=== PATIENT | male | born 1980 | race American Indian/Alaskan Native ===

== ENCOUNTER 2022-01-14 11:07 | Inpatient (IN) | payer SELFPAY ==
[2022-01-14 12:38] LABS: Hematocrit 49.2 % (35.5-45.6); Hemoglobin 16.8 gm/dl (11.8-15.2); Mean Corpuscular HGB Conc 34 % (32-34); Mean Corpuscular Volume 98 fl (84-94); Platelet Count 333 K/mm3 (140-440)
[2022-01-14 13:01] LABS: Calcium 11.1 mg/dL (8.4-10.2)
[2022-01-14] MEDS ORDERED: SODIUM CHLORIDE 0.9% 1000 ML 1,000 ML IV ONE ×2 (13:08→15:50)
[2022-01-14 13:27] LABS: Albumin 6.9 g/dL (3.9-5)
--- NOTE | 2022-01-14 13:27 | Event Note ---
ED Screening Note ED Screening Note: KEIRA AWARE OF WBC LABS NOTED US ORDERED This initial assessment/diagnostic orders/clinical plan/treatment(s) is/are subject to change based on patients health status, clinical progression and re- assessment by fellow clinical providers in the ED. Further treatment and workup at subsequent clinical providers discretion. Patient/guardian urged not to elope from the ED as their condition may be serious if not clinically assessed and managed. Initial orders include: NEEDS BED FOR EVAL
--- NOTE | 2022-01-14 14:08 | Ultrasound Report ---
LIMITED RUQ ABDOMINAL ULTRASOUND INDICATION: RUQ PAIN. COMPARISON: No relevant prior imaging study available. FINDINGS: Pancreas: Visualized portions show no significant abnormality. Abdominal Aorta: No significant abnormality. IVC: No significant abnormality. Liver: The liver measures 14 cm in length. No significant abnormality. Normal hepatopedal blood flow in the main portal vein. Gallbladder: No significant abnormality. Bile ducts: No significant abnormality. Common bile duct measures 2 mm. Right kidney: No significant abnormality visualized.. Free fluid: None. Additional Findings: None. IMPRESSION: 1. Normal exam. Signer Name: Camron Haque MD Signed: 01/14/2022 2:03 PM Workstation Name: [email or web address]
[2022-01-14] MEDS ORDERED: ONDANSETRON 4 MG/2 ML INJ IV ONE ×2 (14:19→16:03)
[2022-01-14] MEDS ORDERED: MORPHINE 4 MG/1 ML INJ IV ONE (14:19)
--- NOTE | 2022-01-14 15:19 | Emergency Department Report ---
ED Abdominal Pain HPI - General Chief Complaint: Abdominal Pain Stated Complaint: NAUSEA/VOMITING PUI?: No Time Seen by Provider: 01/14/22 14:55 Source: patient, EMS Mode of arrival: Stretcher Limitations: No Limitations - History of Present Illness Initial Comments: ILL APPEARING MALE COMES TO ER WITH N/V TO FT FOR EVAL- ABEL ORDERED LAB/HYDRATION ETC. LABS NOTED WBC [address] ACOSTA REFUSED TO SEE DR LOMELI - THE AM MD- SCREENED PT A 2ND TIME AT 1420 PT WAITING FOR AFTERNOON MD TO EVALUATE HIM-- COMPLETED AT 1600 - Related Data Allergies Allergy/AdvReac Type Severity Reaction Status Date / Time No Known Allergies Allergy Verified 01/14/22 11:15 ED Review of Systems ROS: Stated complaint: NAUSEA/VOMITING Other details as noted in HPI Comment: All other systems reviewed and negative ED Past Medical Hx - Past Medical History Previous Medical History?: Yes Additional medical history: gerd - Surgical History Past Surgical History?: Yes - Social History Smoking Status: Current Every Day Smoker Substance Use Type: Alcohol, Marijuana ED Physical Exam - General Limitations: No Limitations General appearance: alert - Head Head exam: Present: atraumatic, normocephalic - Eye Eye exam: Present: normal appearance - ENT ENT exam: Present: mucous membranes dry - Neck Neck exam: Present: normal inspection - Respiratory Respiratory exam: Present: normal lung sounds bilaterally. Absent: respiratory distress - Cardiovascular Cardiovascular Exam: Present: regular rate, normal rhythm. Absent: systolic murmur, diastolic murmur, rubs, gallop - GI/Abdominal GI/Abdominal exam: Present: soft, normal bowel sounds - Rectal Rectal exam: Present: deferred - Extremities Exam Extremities exam: Present: normal inspection - Back Exam Back exam: Present: normal inspection - Neurological Exam Neurological exam: Present: alert, oriented X3 - Psychiatric Psychiatric exam: Present: normal affect, normal mood - Skin Skin exam: Present: warm, dry, intact, normal color. Absent: rash ED Course Vital Signs 01/14/22 11:14 Pulse Rate 88 Respiratory 16 Rate Blood Pressure 152/90 [Left] O2 Sat by Pulse 98 Oximetry ED Medical Decision Making - Lab Data Result diagrams: 01/14/22 12:29 01/14/22 12:29 - Medical Decision Making Labs 01/14/22 01/14/22 12:29 12:29 WBC 22.9 H RBC 5.00 Hgb 16.8 H Hct 49.2 H MCV 98 H MCH 34 H MCHC 34 RDW 14.0 Plt Count 333 Sodium 146 H Potassium 4.2 Chloride 93.2 L Carbon Dioxide 24 Anion Gap 33 BUN 71 H Creatinine 8.9 H Estimated GFR 7 BUN/Creatinine Ratio 8 Glucose 129 H Calcium 11.1 H Total Bilirubin 0.90 AST 27 ALT 19 Alkaline Phosphatase 136 H Total Protein 9.4 H Albumin 6.9 H Albumin/Globulin Ratio 2.8 Lipase 87 H Vital Signs 01/14/22 11:14 Pulse Rate 88 Respiratory 16 Rate Blood Pressure 152/90 [Left] O2 Sat by Pulse 98 Oximetry Critical care attestation.: If time is entered above; I have spent that time in minutes in the direct care of this critically ill patient, excluding procedure time. ED Disposition Clinical Impression: Abdominal pain Disposition: 30 STILL A PATIENT Is pt being admited?: Yes Does the pt Need Aspirin: No Condition: Stable Referrals: PRIMARY CARE, [Primary Care Provider] - 3-5 Days
--- NOTE | 2022-01-14 15:37 | Cat Scan Report ---
CT ABDOMEN AND PELVIS WITHOUT CONTRAST INDICATION / CLINICAL INFORMATION: Acute abdominal pain with nausea and vomiting, parveen. TECHNIQUE: Axial CT images were obtained through the abdomen and pelvis without IV contrast. All CT scans at this location are performed using CT dose reduction for ALARA by means of automated exposure control. COMPARISON: None available. FINDINGS: LOWER CHEST: No significant abnormality. AORTA / ARTERIES: No significant abnormality. IVC / VEINS: No significant abnormality. LYMPH NODES: No significant adenopathy. COLON: No significant abnormality. APPENDIX: No significant abnormality. STOMACH / SMALL BOWEL: No significant abnormality. PERITONEUM: No free fluid. No free air. No fluid collection. LIVER: Scattered subcentimeter hypoattenuating foci throughout the liver. 2 small to completely matt cterize but statistically likely represent simple hepatic cysts. GALLBLADDER: No significant abnormality. BILE DUCTS: No significant abnormality. PANCREAS: No significant abnormality. SPLEEN: No significant abnormality. ADRENALS: No significant abnormality. RIGHT KIDNEY / URETER: Subcentimeter hypoattenuating focus which is too small to completely character ize but statistically likely represents a simple renal cyst. No acute findings. LEFT KIDNEY / URETER: No significant abnormality. URINARY BLADDER: No significant abnormality. REPRODUCTIVE ORGANS: No significant abnormality. SKELETAL SYSTEM: There is a bony excrescence off of the left L3 vertebral process, possibly sequela o f prior trauma versus sequela of degenerative facet disease. ADDITIONAL FINDINGS: None. IMPRESSION: 1. No CT findings to explain symptomatology. 2. Additional findings as above. Signer Name: Liam Holland DO Signed: 01/14/2022 3:32 PM Workstation Name: [email or web address]
[2022-01-14] MEDS ORDERED: FAMOTIDINE 20 MG/2 ML INJ IV ONE (16:03)
--- NOTE | 2022-01-14 16:23 | Emergency Department Report ---
HPI - General Chief Complaint: Abdominal Pain PUI?: No Time Seen by Provider: 01/14/22 14:55 - HPI HPI: 41-year-old male with a history of chronic marijuana abuse, who states he has no known past medical history, presents with what he states has been several days of persistent nausea vomiting diarrhea abdominal pain and inability to tolerate liquids or solids. He states that he last smoked marijuana 1 day ago. He denies any alcohol or other illicit drug usage. He states "I go through the cycles where I feel sick for about 2 weeks but this time I just felt worse." He reports persistent cramping of his abdomen associated with persistent watery nonbloody vomiting and watery nonbloody diarrhea. He states he is making urine but very little. No melena hematochezia or hematemesis. 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 Pain currently 6 out of 10. Of note that medical screening examination was performed by Dr.Michael Sellers, prior to the onset of this provider shift time. He had ordered the patient for labs and diagnostic imaging, all of which resulted at the onset of this provider shift time. ED Past Medical Hx - Past Medical History Previous Medical History?: Yes Additional medical history: gerd - Surgical History Past Surgical History?: Yes - Social History Smoking Status: Current Every Day Smoker Substance Use Type: Alcohol, Marijuana ED Review of Systems ROS: Stated complaint: NAUSEA/VOMITING Other details as noted in HPI Comment: All other systems reviewed and negative Constitutional: see HPI, malaise, weakness Eyes: denies: eye pain, eye discharge, vision change ENT: denies: ear pain, throat pain, dental pain, hearing loss, epistaxis Respiratory: denies: see HPI, cough, orthopnea, shortness of breath, SOB with exertion, SOB at rest Cardiovascular: denies: chest pain, palpitations, dyspnea on exertion, orthopnea, edema, syncope, paroxysmal nocturnal dyspnea, other Endocrine: no symptoms reported Gastrointestinal: abdominal pain, nausea, vomiting, diarrhea. denies: constipation, hematemesis, melena, hematochezia, other Genitourinary: denies: urgency, dysuria, frequency, hematuria, discharge, testic ular pain, testicular mass Musculoskeletal: denies: back pain, joint swelling, arthralgia Skin: denies: rash, lesions, change in color, change in hair/nails, pruritus Neurological: weakness. denies: headache, numbness, paresthesias, confusion, abnormal gait Psychiatric: denies: anxiety, depression, auditory hallucinations, visual hallucinations, homicidal thoughts Hematological/Lymphatic: denies: easy bleeding, easy bruising, swollen glands Physical Exam - Physical Exam Vital Signs: Vital Signs 01/14/22 11:14 Pulse Rate 88 Respiratory 16 Rate Blood Pressure 152/90 [Left] O2 Sat by Pulse 98 Oximetry General: Gen: pt is well appearing, no acute distress HEENT: Normocephalic atraumatic pupils equally round and reactive to light extraocular muscles intact sclera anicteric Neck: Full range of motion, no midline spinal tenderness palpation, no JVD, no carotid bruits, no nuchal rigidity, pale and dry oral mucosa CVS: S1-S2 regular rate and rhythm with no gallops rubs or murmurs, chest wall nontender Pulmonary: Clear to auscultation bilaterally, no wheezes rales or rhonchi Abdomen: Soft nondistended nontender no guarding or rebound tenderness, no palpable deformities or step-offs, normal active bowel sounds, no hepatosplenomegaly, no pulsatile masses : Deferred Extremities: No cyanosis no clubbing no edema, intact distal peripheral pulses, Integumentary: Skin normal, no petechia no purpura no abscess no lacerations no evidence of trauma no evidence of infection Neuro: Patient is awake alert and oriented to person place time situation, mentating well, cranial nerves II through XII intact, no focal neurodeficits, sensation grossly tact Psych: Calm cooperative, mood affect normal ED Course Vital Signs 01/14/22 11:14 Pulse Rate 88 Respiratory 16 Rate Blood Pressure 152/90 [Left] O2 Sat by Pulse 98 Oximetry - Consultations Consultation #1: 01/14/22 19:23 I was asked by Dr. Brooks to telephone nephrology concerning their following of the patient. I called Dr. Mackey and spoke to him directly. Case details were reviewed with him at length. Per his verbal report, patient is to receive continued IV hydration and undergo repeat serum creatinines. Patient does not warrant emergent hemodialysis at this time. He welcomes a return call to nephrology should the patient decompensate or develop worsening renal function or acidosis. ED Medical Decision Making - Lab Data Result diagrams: 01/14/22 12:29 01/14/22 12:29 - Radiology Data Radiology results: report reviewed - Medical Decision Making 41-year-old male with a history of chronic cannabis usage presents for evaluation of nausea vomiting diarrhea and abdominal pain. Vital signs stable. Serum lab work reveals a leukocytosis of 22.9, elevated anion gap metabolic acidosis of 33, what is presumed to be acute kidney injury with a creatinine of 8.9. Patient has hyperuricemia. Pt ordered for multiple liters of normal saline while in the ER. His mentation remained normal and stable. Case reviewed with admitting hospitalist, Dr. Brooks. THe pt has been accepted for admission to the hospitalist service for further management. Critical Care Time: No Critical care attestation.: If time is entered above; I have spent that time in minutes in the direct care of this critically ill patient, excluding procedure time. ED Disposition Clinical Impression: Abdominal pain, High anion gap metabolic acidosis, Acute kidney injury, Leukocytosis Disposition: 09 ADMITTED INPATIENT Is pt being admited?: Yes Does the pt Need Aspirin: No Condition: Stable Referrals: PRIMARY CARE, [Primary Care Provider] - 3-5 Days
--- NOTE | 2022-01-14 17:58 | History and Physical Report ---
History of Present Illness Chief complaint: I have been feeling sick for the past 2 weeks History of present illness: 41 YO Male with GERD, Nicotine Dependence, ETOH Dependence presents ED for evaluation. Patient reports "I have been feeling sick for the past 2 weeks". Patient states that he has experienced multiple episodes of nausea, multiple episodes of vomiting, abdominal discomfort over the past 2 weeks with persistent symptoms over the same timeframe. EMS was notified and upon arrival the patient was found to be in distress and subsequent transported to [facility] for further care and evaluation of the aforementioned symptoms. The patient was seen and evaluated in the emergency department. All lab and imaging studies reviewed. Patient was found to have sepsis suspected secondary to urinary tract infection CLEMENCIA with ATN. Patient admitted to medical floor due to increased risk of worsening symptoms after medical stabilization. Patient initiated on sepsis protocol. Nephrology team consulted in ED. Patient has fever, chills, chest pain, palpitation, adductive cough, skin rash, recent contact, known exposure to COVID-19. No prior admission for review. No medication listed at time of admission for reconciliation. Advanced care planning conducted in ED. Past History Past Medical History: GERD Past Surgical History: No surgical history, Other (Reviewed) Social history: single, smoking, alcohol abuse Family history: hypertension Medications and Allergies Allergies Allergy/AdvReac Type Severity Reaction Status Date / Time No Known Allergies Allergy Verified 01/14/22 11:15 Review of Systems Constitutional: no weight loss, no weight gain, no fever Ears, nose, mouth and throat: no ear pain, no ear discharge, no tinnitis, no decreased hearing, no nose pain Cardiovascular: no chest pain, no orthopnea, no edema, no syncope Respiratory: no cough, no excessive sputum, no shortness of breath Gastrointestinal: nausea, vomiting Genitourinary Male: no hematuria, no flank pain, no discharge, no urinary frequency, no urinary hesitancy Rectal: no pain, no incontinence, no bleeding Musculoskeletal: no neck stiffness, no shooting arm pain, no arm numbness/tingling, no low back pain, no shooting leg pain Integumentary: no rash, no pruritis, no sores, no wounds, no jaundice Neurological: no transient paralysis, no weakness, no numbness, no tingling, no seizures Psychiatric: no anxiety, no change in sleep habits, no insomnia, no change in appetite, no disorientation Endocrine: no cold intolerance, no excessive thirst, no polyuria, no excessive sweating, no weight change Hematologic/Lymphatic: no easy bleeding Allergic/Immunologic: no urticaria, no wheezing Exam - Constitutional Vitals: Temp Pulse Resp BP Pulse Ox 88 16 152/90 98 01/14/22 11:14 01/14/22 11:14 01/14/22 11:14 01/14/22 11:14 General appearance: Present: mild distress - EENT Eyes: Present: PERRL ENT: hearing intact, clear oral mucosa - Neck Neck: Present: supple, normal ROM - Respiratory Respiratory effort: normal Respiratory: bilateral: CTA - Cardiovascular Heart Sounds: Present: S1 & S2. Absent: rub, click - Extremities Extremities: pulses symmetrical, No edema Peripheral Pulses: within normal limits - Abdominal General gastrointestinal: Present: soft, non-tender, non-distended, normal bowel sounds Male genitourinary: Present: normal - Integumentary Integumentary: Present: clear, warm, dry - Musculoskeletal Musculoskeletal: gait normal, strength equal bilaterally - Psychiatric Psychiatric: appropriate mood/affect, intact judgment & insight - Neurologic Neurologic: CNII-XII intact, moves all extremities Results - Labs CBC & Chem 7: 01/14/22 12:29 01/14/22 12:29 Labs: Abnormal lab results 01/14/22 01/14/22 01/14/22 Range/Units 12:29 12:29 14:39 WBC 22.9 H (4.5-11.0) K/mm3 Hgb 16.8 H (11.8-15.2) gm/dl Hct 49.2 H (35.5-45.6) % MCV 98 H (84-94) fl MCH 34 H (28-32) pg Sodium 146 H (137-145) mmol/L Chloride 93.2 L (98-107) mmol/L BUN 71 H (9-20) mg/dL Creatinine 8.9 H (0.8-1.3) mg/dL Glucose 129 H (75-100) mg/dL Calcium 11.1 H (8.4-10.2) mg/dL Magnesium 2.70 H (1.7-2.3) mg/dL Alkaline Phosphatase 136 H (35-129) units/L Total Creatine Kinase 1203 H (55-170) units/L Total Protein 9.4 H (6.3-8.2) g/dL Albumin 6.9 H (3.9-5) g/dL Lipase 87 H (13-60) units/L Assessment and Plan - Patient Problems (1) Sepsis Current Visit: Yes Status: Acute Plan to address problem: Sepsis protocol: IV antibiotic therapy, IV fluid resuscitation therapy, urinalysis, (2) UTI (urinary tract infection) Current Visit: Yes Status: Acute Qualifiers: Encounter type: initial encounter Plan to address problem: Urinalysis, IV antibiotic therapy, supportive care. (3) Acute kidney injury (CLEMENCIA) with acute tubular necrosis (ATN) Current Visit: Yes Status: Acute Plan to address problem: IV for resuscitation therapy, nephrology team consulted in ED, strict I's/O, monitor urine output every shift, renal ultrasound, urine electrolytes (4) Nicotine dependence Current Visit: Yes Status: Acute Qualifiers: Nicotine product type: cigarettes Plan to address problem: Smoking cessation counseling, supportive care, baby change counseling, +15 minutes. (5) Advance care planning Current Visit: Yes Status: Acute Plan to address problem: Disease education done, care plan discussed, diagnoses discussed, prognosis discussed, patient is full code. Patient knowledges understanding agree with care plan, +30 minutes. (6) Preventative health care Current Visit: Yes Status: Acute Plan to address problem: Patient counseled regarding risk factor reduction, outpatient medication compliance, outpatient follow-up with primary care physician for all age and risk factor appropriate screening test. +30 minutes. (7) DVT prophylaxis Current Visit: Yes Status: Acute Plan to address problem: SCD to bilateral lower extremities while in bed
[2022-01-14 19:10] LABS: Hepatitis B Surface Antigen Non-Reactive (Negative); Hepatitis C Virus Antibody Non-Reactive (NonReactive)
[2022-01-14] MEDS ORDERED: ACETAMINOPHEN 325 MG TAB PO PRN ×2 (19:13→19:15)
[2022-01-14] MEDS ORDERED: SODIUM CHLORIDE 0.9% 1000 ML IV SOLN IV ONE (19:13)
[2022-01-14] MEDS ORDERED: HYDROmorphone 0.5 MG/0.5 ML INJ IV PRN (19:13)
[2022-01-14] MEDS ORDERED: ALBUTEROL 2.5 MG/3 ML NEBU IH PRN (19:15)
[2022-01-14] MEDS ORDERED: oxyCODONE /ACETAMINOPHEN 5-325MG TAB PO PRN (19:15)
[2022-01-14 20:09] LABS: Amphetamine Screen,Urine PRESUMPTIVE NEGATIVE; Benzodiazepines Screen,Urine PRESUMPTIVE NEGATIVE; Cannabinoid Screen,Urine PRESUMPTIVE POSITIVE; Cocaine Screen,Urine PRESUMPTIVE NEGATIVE; Methadone Screen,Urine PRESUMPTIVE NEGATIVE; Opiate Screen,Urine PRESUMPTIVE NEGATIVE
[2022-01-14 20:11] LABS: Mucus,Urine FEW /HPF
[2022-01-14 20:16] LABS: Color,Urine Yellow (Yellow)
[2022-01-14 20:29] LABS: Creatinine,Urine 394.4 mg/dL (0.1-20.0)
[2022-01-14] MEDS ORDERED: LORazepam 2 MG/ML VIAL IV PRN (20:43)
[2022-01-15] MEDS: SODIUM CHLORIDE 0.9% 1000 ML 1,000 ML IV SCH ×2 (05:28→18:39)
[2022-01-15 06:30] LABS: Basophils # (Auto) 0.1 K/mm3 (0.0-0.1); Basophils % (Auto) 0.4 % (0.0-1.8); Eosinophils # (Auto) 0.1 K/mm3 (0.0-0.4); Eosinophils % (Auto) 0.5 % (0.0-4.3); Hematocrit 42.2 % (35.5-45.6); Hemoglobin 13.8 gm/dl (11.8-15.2); Lymphocytes # (Auto) 1.2 K/mm3 (1.2-5.4); Lymphocytes % (Auto) 6.4 % (13.4-35.0); Mean Corpuscular HGB Conc 33 % (32-34); Mean Corpuscular Volume 100 fl (84-94); Monocytes # (Auto) 1.5 K/mm3 (0.0-0.8); Monocytes % (Auto) 8.1 % (0.0-7.3); Platelet Count 250 K/mm3 (140-440); Red Blood Count 4.22 M/mm3 (3.65-5.03); Red Cell Distribution Width 14.4 % (13.2-15.2)
[2022-01-15 06:47] LABS: Calcium 9.4 mg/dL (8.4-10.2)
--- NOTE | 2022-01-15 09:28 | Ultrasound Report ---
ULTRASOUND RENAL INDICATION / CLINICAL INFORMATION: esrd. COMPARISON: CT and ultrasound dated 01/14/22 FINDINGS: RIGHT KIDNEY: Length = 10.1 cm. - Echogenicity: Moderately echogenic. - Parenchymal Thickness: Normal. - Hydronephrosis: None. - Cyst / Mass: None. - Stones: None seen. LEFT KIDNEY: Length = 10.1 cm. - Echogenicity: Moderately echogenic. - Parenchymal Thickness: Normal. - Hydronephrosis: None. - Cyst / Mass: None. - Stones: None seen. URINARY BLADDER: No significant abnormality. FREE FLUID: None. ADDITIONAL FINDINGS: None. IMPRESSION: 1. Bilateral echogenic kidneys characteristic of medical renal disease. No hydronephrosis or other [place] abnormality. Signer Name: Shimon Garnett MD Signed: 01/15/2022 9:23 AM Workstation Name: [email or web address]
--- NOTE | 2022-01-15 11:22 | Consultation ---
History of Present Illness - Reason for Consult Consult date: 01/15/22 acute renal failure - History of Present Illness The patient is a 41 YO Male with history of GERD, Nicotine dependence and ETOH dependence who presented to [facility] 01/14/22 with c/o N & V for the past 2 weeks. Patient states that he has experienced multiple episodes of nausea, vomiting and associated abdominal discomfort. Patient deneis fever, chills, chest pain, palpitation, cough, rash, dysuria, hematuria, recent contact, known exposure to COVID-19. Labs notable for Creat 8.9 and BUN 71. Admitted for further treat ment. Nephrology consulted or further evaluation and treatment of CLEMENCIA. Past History Past Medical History: GERD, other (See HPI.) Past Surgical History: No surgical history, Other (Reviewed) Social history: single, smoking, alcohol abuse Family history: hypertension Medications and Allergies Allergies Allergy/AdvReac Type Severity Reaction Status Date / Time No Known Allergies Allergy Verified 01/14/22 11:15 Active Meds: Active Medications Acetaminophen (Acetaminophen 325 Mg Tab) 650 mg PO Q4H PRN PRN Reason: Pain MILD(1-3)/Fever >100.5/KINCAID Albuterol (Albuterol 2.5 Mg/3 Ml Nebu) 2.5 mg IH Q4HRT PRN PRN Reason: Shortness Of Breath Hydromorphone HCl (Hydromorphone 0.5 Mg/0.5 Ml Inj) 0.25 mg IV Q4H PRN PRN Reason: Pain , Severe (7-10) Levofloxacin/Dextrose (Levaquin 750mg/150ml) 750 mg in 150 mls @ 100 mls/hr IV Q48H KVNG; Protocol Last Admin: 01/15/22 09:36 Dose: 100 mls/hr Sodium Chloride (Nacl 0.9% 1000 Ml) 1,000 mls @ 125 mls/hr IV DIRECT KVNG Last Admin: 01/15/22 05:28 Dose: 125 mls/hr Lorazepam (Lorazepam 2 Mg/Ml Vial) 2 mg IV Q1HR PRN PRN Reason: CIWA-Ar 8-15 Ondansetron HCl (Ondansetron 4 Mg/2 Ml Inj) 4 mg IV Q8H PRN PRN Reason: Nausea And Vomiting Oxycodone/Acetaminophen (Oxycodone /Acetaminophen 5-325mg Tab) 1 tab PO Q16H PRN PRN Reason: Pain, Moderate (4-6) Sodium Chloride (Sodium Chloride 0.9% 10 Ml Flush Syringe) 10 ml IV BID KVNG Last Admin: 01/15/22 09:37 Dose: 10 ml Sodium Chloride (Sodium Chloride 0.9% 10 Ml Flush Syringe) 10 ml IV PRN PRN PRN Reason: LINE FLUSH Review of Systems All systems: negative Exam - Vital Signs Vital signs: Vital Signs Pulse Resp BP Pulse Ox 88 16 152/90 98 01/14/22 11:14 01/14/22 11:14 01/14/22 11:14 01/14/22 11:14 Results - Lab Results 01/15/22 06:09 01/15/22 06:09 Most recent lab results Calcium 9.4 mg/dL (8.4-10.2) D 01/15/22 06:09 Magnesium 2.70 mg/dL (1.7-2.3) H 01/14/22 14:39 Urine Creatinine 394.4 mg/dL (0.1-20.0) H 01/14/22 Unknown Urine Sodium 22 mmol/L 01/14/22 Unknown Assessment and Plan 1. Acute kidney injury: Vasomotor CLEMENCIA in the setting of volume depletion. Renal US and CT negative for hydro. Urine studies ordered. ATN. Monitor renal function. Creatinine level is improving. Avoid nephrotoxic agents. Meds dosage based on GFR. 2. FEN: Replete lytes as needed. Monitor lytes and volume status. 3. Leukocytosis, POA: Abx. Monitor. 4. Etoh use: Monitor. 5. Tobacco use. Subjective: Patient was seen and examined at the bedside. Examination: General appearance: well-developed, appears stated age, no distress HEENT: atraumatic, no icterus Neck: trachea midline Respiratory: ctab Heart: S1S2, regular, no murmur Abdomen: soft, bowel sounds heard, NT Integumentary: no obvious rash Neurologic: AO, conversing, moving extremities Ext: no edema
--- NOTE | 2022-01-15 11:35 | Progress Note ---
Assessment and Plan Assessment and plan: 41 YO Male with GERD, Nicotine Dependence, ETOH Dependence presents ED for evaluation of multiple episodes of nausea, multiple episodes of vomiting, abdominal discomfort over the past 2 weeks. EMS was notified and upon arrival the patient was found to have sepsis suspected secondary to urinary tract in fection CLEMENCIA with ATN. Sepsis UTI Acute kidney injury with ATN Nicotine dependence 01/15/2022. Patient's leukocytosis persists however creatinine has improved. Creatinine on admission was 8.9 and has improved to 3.[address] scan of the abdomen pelvis and renal ultrasound reveals no obstruction or hydronephrosis. However, renal ultrasound does reveal medical renal disease. We do not have a baseline creatinine to compare. Continue IV fluid hydration and follow-up BMP History Interval history: No new issues overnight Hospitalist Physical - Constitutional Vitals: Temp Pulse Resp BP Pulse Ox 98.8 F 53 L 20 155/104 99 01/15/22 03:16 01/15/22 03:16 01/15/22 03:16 01/15/22 03:16 01/15/22 10:00 General appearance: Present: no acute distress - EENT Eyes: Present: PERRL, EOM intact ENT: hearing intact, clear oral mucosa, dentition normal - Neck Neck: Present: supple, normal ROM - Respiratory Respiratory effort: normal Respiratory: bilateral: CTA - Cardiovascular Rhythm: regular Heart Sounds: Present: S1 & S2. Absent: gallop, rub - Extremities Extremities: no ischemia, No edema, Full ROM - Abdominal General gastrointestinal: soft, non-tender, non-distended, normal bowel sounds - Integumentary Integumentary: Present: clear, warm, dry - Neurologic Neurologic: CNII-XII intact, moves all extremities Results - Labs CBC & Chem 7: 01/15/22 06:09 01/15/22 06:09 Labs: Laboratory Last Values WBC 19.0 K/mm3 (4.5-11.0) H 01/15/22 06:09 RBC 4.22 M/mm3 (3.65-5.03) 01/15/22 06:09 Hgb 13.8 gm/dl (11.8-15.2) D 01/15/22 06:09 Hct 42.2 % (35.5-45.6) D 01/15/22 06:09 MCV 100 fl (84-94) H 01/15/22 06:09 MCH 33 pg (28-32) H 01/15/22 06:09 MCHC 33 % (32-34) 01/15/22 06:09 RDW 14.4 % (13.2-15.2) 01/15/22 06:09 Plt Count 250 K/mm3 (140-440) 01/15/22 06:09 Lymph % (Auto) 6.4 % (13.4-35.0) L 01/15/22 06:09 [place] % (Auto) 8.1 % (0.0-7.3) H 01/15/22 06:09 Eos % (Auto) 0.5 % (0.0-4.3) 01/15/22 06:09 Baso % (Auto) 0.4 % (0.0-1.8) 01/15/22 06:09 Lymph # (Auto) 1.2 K/mm3 (1.2-5.4) 01/15/22 06:09 [place] # (Auto) 1.5 K/mm3 (0.0-0.8) H 01/15/22 06:09 Eos # (Auto) 0.1 K/mm3 (0.0-0.4) 01/15/22 06:09 Baso # (Auto) 0.1 K/mm3 (0.0-0.1) 01/15/22 06:09 Seg Neutrophils % 84.6 % (40.0-70.0) H 01/15/22 06:09 Seg Neutrophils # 16.1 K/mm3 (1.8-7.7) H 01/15/22 06:09 Sodium 145 mmol/L (137-145) 01/15/22 06:09 Potassium 3.9 mmol/L (3.6-5.0) 01/15/22 06:09 Chloride 105.8 mmol/L (98-107) 01/15/22 06:09 Carbon Dioxide 26 mmol/L (22-30) 01/15/22 06:09 Anion Gap 17 mmol/L 01/15/22 06:09 BUN 60 mg/dL (9-20) H 01/15/22 06:09 Creatinine 3.9 mg/dL (0.8-1.3) H D 01/15/22 06:09 Estimated GFR 21 ml/min 01/15/22 06:09 BUN/Creatinine Ratio 15 % 01/15/22 06:09 Glucose 113 mg/dL (75-100) H 01/15/22 06:09 Lactic Acid 1.80 mmol/L (0.7-2.0) 01/15/22 01:05 Calcium 9.4 mg/dL (8.4-10.2) D 01/15/22 06:09 Magnesium 2.70 mg/dL (1.7-2.3) H 01/14/22 14:39 Total Bilirubin 0.90 mg/dL (0.1-1.2) 01/14/22 12:29 AST 27 units/L (5-40) 01/14/22 12:29 ALT 19 units/L (7-56) 01/14/22 12:29 Alkaline Phosphatase 136 units/L (35-129) H 01/14/22 12:29 Total Creatine Kinase 1203 units/L (55-170) H 01/14/22 14:39 Total Protein 9.4 g/dL (6.3-8.2) H 01/14/22 12:29 Albumin 6.9 g/dL (3.9-5) H 01/14/22 12:29 Albumin/Globulin Ratio 2.8 % 01/14/22 12:29 Lipase 87 units/L (13-60) H 01/14/22 12:29 Urine Color Yellow (Yellow) 01/14/22 19:33 Urine Turbidity Clear (Clear) 01/14/22 19:33 Specific [place] (Man) 1.030 (1.003-1.030) 01/14/22 19:33 Ur Protein (Man) 2+ mg/dL (Negative) 01/14/22 19:33 Ur Ketones (Man) Negative (Negative) 01/14/22 19:33 Ur Nitrite (Man) Negative (Negative) 01/14/22 19:33 Ur Reducing Substances Not Reportable 01/14/22 19:33 Urine Bilirubin (Man) Negative (Negative) 01/14/22 19:33 Urine Ictotest Not Reportable 01/14/22 19:33 Leukocyte Esterase (Man) Negative (Negative) 01/14/22 19:33 Urine WBC (Auto) 10.0 /HPF (0.0-6.0) H 01/14/22 19:33 Urine RBC (Auto) 4.0 /HPF (0.0-6.0) 01/14/22 19:33 U Epithel Cells (Auto) 1.0 /HPF (0-13.0) 01/14/22 19:33 Urine RBC (Manual) 1+ (Negative) 01/14/22 19:33 Urine Mucus Few /HPF 01/14/22 19:33 Urine Yeast (Budding) 1+ /HPF 01/14/22 19:33 Urine Creatinine 394.4 mg/dL (0.1-20.0) H 01/14/22 Unknown Urine Sodium 22 mmol/L 01/14/22 Unknown Urine Opiates Screen Presumptive negative 01/14/22 Unknown Urine Methadone Screen Presumptive negative 01/14/22 Unknown Ur Barbiturates Screen Presumptive negative 01/14/22 Unknown Ur Phencyclidine Scrn Presumptive negative 01/14/22 Unknown Ur Amphetamines Screen Presumptive negative 01/14/22 Unknown U Benzodiazepines Scrn Presumptive negative 01/14/22 Unknown Urine Cocaine Screen Presumptive negative 01/14/22 Unknown U Marijuana (THC) Screen Presumptive positive 01/14/22 Unknown Drugs of Abuse Note Disclamer 01/14/22 Unknown Hepatitis A IgM Ab Non-reactive (NonReactive) 01/14/22 18:11 Hep Bs Antigen Non-reactive (Negative) 01/14/22 18:11 Hep B Core IgM Ab Non-reactive (NonReactive) 01/14/22 18:11 Hepatitis C Antibody Non-reactive (NonReactive) 01/14/22 18:11 HIV 1&2 Antibody Rapid Non react (Non React) 01/14/22 18:11 HIV P24 Antigen Non react (Non React) 01/14/22 18:11 Blood Type AB POSITIVE 01/14/22 20:55 Antibody Screen Negative 01/14/22 20:55 Microbiology: Microbiology 01/14/22 20:55 Peripheral/Venous Blood Culture - Preliminary Culture in Progress 01/14/22 21:08 Peripheral/Venous Blood Culture - Preliminary Culture in Progress Maddox/IV: Voiding Method Toilet Active Medications - Current Medications Current Medications: Generic Name Dose Route Start Last Admin Trade Name Freq PRN Reason Stop Dose Admin Acetaminophen 650 mg 01/14/22 19:15 Acetaminophen 325 Mg Tab PO Q4H PRN Pain MILD(1-3)/Fever >100.5/KINCAID Albuterol 2.5 mg 01/14/22 19:15 Albuterol 2.5 Mg/3 Ml Nebu IH Q4HRT PRN Shortness Of Breath Hydromorphone HCl 0.25 mg 01/14/22 19:13 Hydromorphone 0.5 Mg/0.5 Ml Inj IV Q4H PRN Pain , Severe (7-10) Levofloxacin/Dextrose 750 mg in 150 mls @ 100 mls/hr 01/15/22 08:00 01/15/22 09:36 Levaquin 750mg/150ml IV 100 mls/hr Q48H KVNG Administration Protocol Sodium Chloride 1,000 mls @ 125 mls/hr 01/14/22 19:15 01/15/22 05:28 Nacl 0.9% 1000 Ml IV 125 mls/hr DIRECT KVNG Administration Lorazepam 2 mg 01/14/22 20:43 Lorazepam 2 Mg/Ml Vial IV Q1HR PRN CIWA-Ar 8-15 Ondansetron HCl 4 mg 01/14/22 19:15 Ondansetron 4 Mg/2 Ml Inj IV Q8H PRN Nausea And Vomiting Oxycodone/Acetaminophen 1 tab 01/14/22 19:15 Oxycodone /Acetaminophen 5-325mg Tab PO Q16H PRN Pain, Moderate (4-6) Sodium Chloride 10 ml 01/14/22 22:00 01/15/22 09:37 Sodium Chloride 0.9% 10 Ml Flush Syringe IV 10 ml BID KVNG Administration Sodium Chloride 10 ml 01/14/22 19:15 Sodium Chloride 0.9% 10 Ml Flush Syringe IV PRN PRN LINE FLUSH
--- NOTE | 2022-01-15 13:19 | Electrocardiograph Report ---
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
[2022-01-15] MEDS: ONDANSETRON 4 MG/2 ML INJ IV PRN (18:38)
[2022-01-16] MEDS: ONDANSETRON 4 MG/2 ML INJ IV PRN ×3 (03:16→23:43)
[2022-01-16] MEDS: SODIUM CHLORIDE 0.9% 1000 ML 1,000 ML IV SCH (03:17)
[2022-01-16 07:19] LABS: Basophils % (Auto) 0.1 % (0.0-1.8); Eosinophils % (Auto) 0.1 % (0.0-4.3); Hematocrit 38.5 % (35.5-45.6); Hemoglobin 12.7 gm/dl (11.8-15.2); Lymphocytes # (Auto) 1.6 K/mm3 (1.2-5.4); Lymphocytes % (Auto) 16.5 % (13.4-35.0); Mean Corpuscular HGB Conc 33 % (32-34); Mean Corpuscular Volume 102 fl (84-94); Monocytes # (Auto) 0.9 K/mm3 (0.0-0.8); Monocytes % (Auto) 9.4 % (0.0-7.3); Platelet Count 228 K/mm3 (140-440); Red Blood Count 3.79 M/mm3 (3.65-5.03); Red Cell Distribution Width 13.9 % (13.2-15.2)
[2022-01-16 07:33] LABS: Calcium 9.2 mg/dL (8.4-10.2)
--- NOTE | 2022-01-16 10:34 | Progress Note ---
Assessment and Plan 1. Acute kidney injury: Vasomotor CLEMENCIA in the setting of volume depletion. Renal US and CT negative for hydro. ATN. Monitor renal function. Creatinine level is much better. Avoid nephrotoxic agents. Meds dosage based on GFR. 2. FEN: Hypernatremia, IV fluids changed to 1/2 NS. Replete lytes as needed. Monitor lytes and volume status. 3. Leukocytosis, POA: Abx. Monitor. 4. Etoh use: Monitor. 5. Tobacco use. Will sign off. F/u with me in 1-2 weeks. Subjective: Patient was seen and examined at the bedside. Doing better. Examination: General appearance: well-developed, appears stated age, no distress HEENT: atraumatic, no icterus Neck: trachea midline Respiratory: ctab Heart: S1S2, regular, no murmur Abdomen: soft, bowel sounds heard, NT Integumentary: no obvious rash Neurologic: AO, conversing, moving extremities Ext: no edema Subjective Date of service: 01/16/22 Objective - Vital Signs Vital signs: Vital Signs - 12hr 01/15/22 01/16/22 23:00 04:15 Temperature 97.5 F L Pulse Rate 47 L Respiratory 18 18 Rate Blood Pressure 132/75 O2 Sat by Pulse 98 99 Oximetry - Lab 01/16/22 06:57 01/16/22 06:57 Most recent lab results Calcium 9.2 mg/dL (8.4-10.2) 01/16/22 06:57 Magnesium 2.70 mg/dL (1.7-2.3) H 01/14/22 14:39 Urine Creatinine 394.4 mg/dL (0.1-20.0) H 01/14/22 Unknown Urine Sodium 22 mmol/L 01/14/22 Unknown Medications & Allergies - Medications Allergies/Adverse Reactions: Allergies No Known Allergies Allergy (Verified 01/14/22 11:15) Active Medications: Generic Name Dose Route Start Last Admin Trade Name Freq PRN Reason Stop Dose Admin Acetaminophen 650 mg 01/14/22 19:15 Acetaminophen 325 Mg Tab PO Q4H PRN Pain MILD(1-3)/Fever >100.5/KINCAID Albuterol 2.5 mg 01/14/22 19:15 Albuterol 2.5 Mg/3 Ml Nebu IH Q4HRT PRN Shortness Of Breath Hydromorphone HCl 0.25 mg 01/14/22 19:13 Hydromorphone 0.5 Mg/0.5 Ml Inj IV Q4H PRN Pain , Severe (7-10) Levofloxacin/Dextrose 750 mg in 150 mls @ 100 mls/hr 01/15/22 08:00 01/15/22 09:36 Levaquin 750mg/150ml IV 100 mls/hr Q48H KVNG Administration Protocol Sodium Chloride 1,000 mls @ 125 mls/hr 01/14/22 19:15 01/16/22 03:17 Nacl 0.9% 1000 Ml IV 125 mls/hr DIRECT KVNG Administration Lorazepam 2 mg 01/14/22 20:43 Lorazepam 2 Mg/Ml Vial IV Q1HR PRN CIWA-Ar 8-15 Ondansetron HCl 4 mg 01/14/22 19:15 01/16/22 03:16 Ondansetron 4 Mg/2 Ml Inj IV 4 mg Q8H PRN Administration Nausea And Vomiting Oxycodone/Acetaminophen 1 tab 01/14/22 19:15 Oxycodone /Acetaminophen 5-325mg Tab PO Q16H PRN Pain, Moderate (4-6) Sodium Chloride 10 ml 01/14/22 22:00 01/15/22 21:51 Sodium Chloride 0.9% 10 Ml Flush Syringe IV 10 ml BID KVNG Administration Sodium Chloride 10 ml 01/14/22 19:15 Sodium Chloride 0.9% 10 Ml Flush Syringe IV PRN PRN LINE FLUSH
[2022-01-16] MEDS: SODIUM CHLORIDE 0.45% 1000 ML 1,000 ML IV SCH ×2 (10:59→23:06)
--- NOTE | 2022-01-16 11:16 | Progress Note ---
Assessment and Plan Assessment and plan: 41 YO Male with GERD, Nicotine Dependence, ETOH Dependence presents ED for evaluation of multiple episodes of nausea, multiple episodes of vomiting, abdominal discomfort over the past 2 weeks. EMS was notified and upon arrival the patient was found to have sepsis suspected secondary to urinary tract in fection CLEMENCIA with ATN. Sepsis UTI Acute kidney injury with ATN Nicotine dependence 01/15/2022. Patient's leukocytosis persists however creatinine has improved. Creatinine on admission was 8.9 and has improved to 3.[address] scan of the abdomen pelvis and renal ultrasound reveals no obstruction or hydronephrosis. However, renal ultrasound does reveal medical renal disease. We do not have a baseline creatinine to compare. Continue IV fluid hydration and follow-up BMP 01/16/2022. Patient's creatinine has improved. Creatinine 8.9->3.9-->1.6. We will continue IV fluid hydration and anticipate for discharge in a.m. History Interval history: No new issues overnight Hospitalist Physical - Constitutional Vitals: Temp Pulse Resp BP Pulse Ox 97.5 F L 47 L 18 132/75 99 01/16/22 04:15 01/16/22 04:15 01/16/22 04:15 01/16/22 04:15 01/16/22 04:15 General appearance: Present: no acute distress - EENT Eyes: Present: PERRL, EOM intact ENT: hearing intact, clear oral mucosa, dentition normal - Neck Neck: Present: supple, normal ROM - Respiratory Respiratory effort: normal Respiratory: bilateral: CTA - Cardiovascular Rhythm: regular Heart Sounds: Present: S1 & S2. Absent: gallop, rub - Extremities Extremities: no ischemia, No edema, Full ROM - Abdominal General gastrointestinal: soft, non-tender, non-distended, normal bowel sounds - Integumentary Integumentary: Present: clear, warm, dry - Neurologic Neurologic: CNII-XII intact, moves all extremities Results - Labs CBC & Chem 7: 01/16/22 06:57 01/16/22 06:57 Labs: Laboratory Last Values WBC 9.5 K/mm3 (4.5-11.0) 01/16/22 06:57 RBC 3.79 M/mm3 (3.65-5.03) 01/16/22 06:57 Hgb 12.7 gm/dl (11.8-15.2) 01/16/22 06:57 Hct 38.5 % (35.5-45.6) 01/16/22 06:57 MCV 102 fl (84-94) H 01/16/22 06:57 MCH 33 pg (28-32) H 01/16/22 06:57 MCHC 33 % (32-34) 01/16/22 06:57 RDW 13.9 % (13.2-15.2) 01/16/22 06:57 Plt Count 228 K/mm3 (140-440) 01/16/22 06:57 Lymph % (Auto) 16.5 % (13.4-35.0) 01/16/22 06:57 [place] % (Auto) 9.4 % (0.0-7.3) H 01/16/22 06:57 Eos % (Auto) 0.1 % (0.0-4.3) 01/16/22 06:57 Baso % (Auto) 0.1 % (0.0-1.8) 01/16/22 06:57 Lymph # (Auto) 1.6 K/mm3 (1.2-5.4) 01/16/22 06:57 [place] # (Auto) 0.9 K/mm3 (0.0-0.8) H 01/16/22 06:57 Eos # (Auto) 0.0 K/mm3 (0.0-0.4) 01/16/22 06:57 Baso # (Auto) 0.0 K/mm3 (0.0-0.1) 01/16/22 06:57 Seg Neutrophils % 73.9 % (40.0-70.0) H 01/16/22 06:57 Seg Neutrophils # 7.0 K/mm3 (1.8-7.7) 01/16/22 06:57 Sodium 148 mmol/L (137-145) H 01/16/22 06:57 Potassium 4.1 mmol/L (3.6-5.0) 01/16/22 06:57 Chloride 110.4 mmol/L (98-107) H 01/16/22 06:57 Carbon Dioxide 30 mmol/L (22-30) 01/16/22 06:57 Anion Gap 12 mmol/L 01/16/22 06:57 BUN 26 mg/dL (9-20) H 01/16/22 06:57 Creatinine 1.6 mg/dL (0.8-1.3) H D 01/16/22 06:57 Estimated GFR 59 ml/min 01/16/22 06:57 BUN/Creatinine Ratio 16 % 01/16/22 06:57 Glucose 85 mg/dL (75-100) 01/16/22 06:57 Lactic Acid 1.80 mmol/L (0.7-2.0) 01/15/22 01:05 Calcium 9.2 mg/dL (8.4-10.2) 01/16/22 06:57 Magnesium 2.70 mg/dL (1.7-2.3) H 01/14/22 14:39 Total Bilirubin 0.90 mg/dL (0.1-1.2) 01/14/22 12:29 AST 27 units/L (5-40) 01/14/22 12:29 ALT 19 units/L (7-56) 01/14/22 12:29 Alkaline Phosphatase 136 units/L (35-129) H 01/14/22 12:29 Total Creatine Kinase 1203 units/L (55-170) H 01/14/22 14:39 Total Protein 9.4 g/dL (6.3-8.2) H 01/14/22 12:29 Albumin 6.9 g/dL (3.9-5) H 01/14/22 12:29 Albumin/Globulin Ratio 2.8 % 01/14/22 12:29 Lipase 87 units/L (13-60) H 01/14/22 12:29 Urine Color Yellow (Yellow) 01/14/22 19:33 Urine Turbidity Clear (Clear) 01/14/22 19:33 Specific [place] (Man) 1.030 (1.003-1.030) 01/14/22 19:33 Ur Protein (Man) 2+ mg/dL (Negative) 01/14/22 19:33 Ur Ketones (Man) Negative (Negative) 01/14/22 19:33 Ur Nitrite (Man) Negative (Negative) 01/14/22 19:33 Ur Reducing Substances Not Reportable 01/14/22 19:33 Urine Bilirubin (Man) Negative (Negative) 01/14/22 19:33 Urine Ictotest Not Reportable 01/14/22 19:33 Leukocyte Esterase (Man) Negative (Negative) 01/14/22 19:33 Urine WBC (Auto) 10.0 /HPF (0.0-6.0) H 01/14/22 19:33 Urine RBC (Auto) 4.0 /HPF (0.0-6.0) 01/14/22 19:33 U Epithel Cells (Auto) 1.0 /HPF (0-13.0) 01/14/22 19:33 Urine RBC (Manual) 1+ (Negative) 01/14/22 19:33 Urine Mucus Few /HPF 01/14/22 19:33 Urine Yeast (Budding) 1+ /HPF 01/14/22 19:33 Urine Creatinine 394.4 mg/dL (0.1-20.0) H 01/14/22 Unknown Urine Sodium 22 mmol/L 01/14/22 Unknown Urine Opiates Screen Presumptive negative 01/14/22 Unknown Urine Methadone Screen Presumptive negative 01/14/22 Unknown Ur Barbiturates Screen Presumptive negative 01/14/22 Unknown Ur Phencyclidine Scrn Presumptive negative 01/14/22 Unknown Ur Amphetamines Screen Presumptive negative 01/14/22 Unknown U Benzodiazepines Scrn Presumptive negative 01/14/22 Unknown Urine Cocaine Screen Presumptive negative 01/14/22 Unknown U Marijuana (THC) Screen Presumptive positive 01/14/22 Unknown Drugs of Abuse Note Disclamer 01/14/22 Unknown Hepatitis A IgM Ab Non-reactive (NonReactive) 01/14/22 18:11 Hep Bs Antigen Non-reactive (Negative) 01/14/22 18:11 Hep B Core IgM Ab Non-reactive (NonReactive) 01/14/22 18:11 Hepatitis C Antibody Non-reactive (NonReactive) 01/14/22 18:11 HIV 1&2 Antibody Rapid Non react (Non React) 01/14/22 18:11 HIV P24 Antigen Non react (Non React) 01/14/22 18:11 Blood Type AB POSITIVE 01/14/22 20:55 Antibody Screen Negative 01/14/22 20:55 Microbiology: Microbiology 01/14/22 19:33 Urine,Clean Catch Urine Culture - Final 01/14/22 20:55 Peripheral/Venous Blood Culture - Preliminary NO GROWTH AFTER 24 HOURS 01/14/22 21:08 Peripheral/Venous Blood Culture - Preliminary NO GROWTH AFTER 24 HOURS Maddox/IV: Voiding Method Toilet Active Medications - Current Medications Current Medications: Generic Name Dose Route Start Last Admin Trade Name Freq PRN Reason Stop Dose Admin Acetaminophen 650 mg 01/14/22 19:15 Acetaminophen 325 Mg Tab PO Q4H PRN Pain MILD(1-3)/Fever >100.5/KINCAID Albuterol 2.5 mg 01/14/22 19:15 Albuterol 2.5 Mg/3 Ml Nebu IH Q4HRT PRN Shortness Of Breath Hydromorphone HCl 0.25 mg 01/14/22 19:13 Hydromorphone 0.5 Mg/0.5 Ml Inj IV Q4H PRN Pain , Severe (7-10) Levofloxacin/Dextrose 750 mg in 150 mls @ 100 mls/hr 01/15/22 08:00 01/15/22 09:36 Levaquin 750mg/150ml IV 100 mls/hr Q48H KVNG Administration Protocol Sodium Chloride 1,000 mls @ 100 mls/hr 01/16/22 11:00 01/16/22 10:59 Nacl 0.45% 1000 Ml IV 100 mls/hr DIRECT KVNG Administration Lorazepam 2 mg 01/14/22 20:43 Lorazepam 2 Mg/Ml Vial IV Q1HR PRN CIWA-Ar 8-15 Ondansetron HCl 4 mg 01/14/22 19:15 01/16/22 10:59 Ondansetron 4 Mg/2 Ml Inj IV 4 mg Q8H PRN Administration Nausea And Vomiting Oxycodone/Acetaminophen 1 tab 01/14/22 19:15 Oxycodone /Acetaminophen 5-325mg Tab PO Q16H PRN Pain, Moderate (4-6) Sodium Chloride 10 ml 01/14/22 22:00 01/16/22 10:55 Sodium Chloride 0.9% 10 Ml Flush Syringe IV 10 ml BID KVNG Administration Sodium Chloride 10 ml 01/14/22 19:15 Sodium Chloride 0.9% 10 Ml Flush Syringe IV PRN PRN LINE FLUSH
[2022-01-17 06:17] VITALS: BP 125/78
[2022-01-17] MEDS: SODIUM CHLORIDE 0.45% 1000 ML 1,000 ML IV SCH (09:39)
--- NOTE | 2022-01-17 12:57 | Discharge Summary ---
Providers - Providers Date of Admission: 01/14/22 19:15 Date of discharge: 01/17/22 Attending physician: ELDER HOLLIS 01/15/22 08:58 Consult to Physician [CONS] Routine Comment: Consulting Provider: JAVID GREGORIO Physician Instructions: Reason For Exam: CLEMENCIA Primary care physician: WEATHER FORECASTER Hospitalization Condition: Stable Disposition: 30 STILL A PATIENT Exam - Constitutional Vitals: Temp Pulse Resp BP Pulse Ox 97.3 F L 58 L 20 125/78 100 01/17/22 05:59 01/17/22 05:59 01/17/22 05:59 01/17/22 05:59 01/17/22 10:28 Plan Follow up with: PRIMARY MD TONIA [Primary Care Provider] - 3-5 Days
[2022-01-17 15:17] LABS: BUN/Creatinine Ratio 15; Blood Urea Nitrogen 17 mg/dL (9-20); Calcium 8.7 mg/dL (8.4-10.2); Hemolysis Index 4
== END 2022-01-17 15:40 | disposition home or self-care (01) | DRG 871 ==
LOC: ED 11:07 → 3A 19:15
PROVIDERS: ADMIT Internal Medicine; ATTEND Internal Medicine
DX: A41.9 Sepsis, unspecified organism (principal); N17.0 Acute kidney failure with tubular necrosis; N39.0 Urinary tract infection, site not specified; E87.0 Hyperosmolality and hypernatremia; Z72.89 Other problems related to lifestyle; K21.9 Gastro-esophageal reflux disease without esophagitis; F10.20 Alcohol dependence, uncomplicated; Y90.9 Presence of alcohol in blood, level not specified; F17.210 Nicotine dependence, cigarettes, uncomplicated; Z82.49 Family history of ischemic heart disease and other diseases of the circulatory system
CPT/HCPCS: 36415; 74176; 76705; 76770; 80048; 80053; 80074; 80307; 81001; 82140; 82550; 82570; 83690; 83735; 84300; 85025; 85027; 86850; 86900; 86901; 87040; 87086; 87806; 93005; G0378; J3490; J1956; J2270; J2405; J7030